=== PATIENT | male | born 1995 | race Caucasian/White ===

== ENCOUNTER 2016-08-07 01:25 | Emergency (ER) | payer OTHER | END 2016-08-07 02:50 | disposition home or self-care (01) | LOC: FER 01:25 | DX: S29.012A Strain of muscle and tendon of back wall of thorax, initial encounter (principal); F17.210 Nicotine dependence, cigarettes, uncomplicated; X50.9XXA Other and unspecified overexertion or strenuous movements or postures, initial encounter | CPT/HCPCS: 99283 ==

== ENCOUNTER 2021-02-16 14:49 | Emergency (ER) | payer OTHER ==
[~2021-02-16 14:49] MED LIST: SUDAFED30 MG PO; TAMIFLU 75MG CA75 MG PO; TESSALON PERLE100 M1 PO
[2021-02-16 16:45] LABS: INFLUENZA A NAA NEGATIVE (NEGATIVE)
[2021-02-16 17:11] LABS: CORONAVIRUS 2019 SARS-COV-2 POSITIVE (NEGATIVE)
== END 2021-02-16 17:45 | disposition home or self-care (01) ==
LOC: FER 14:49
PROVIDERS: Physician Assistant
DX: U07.1 COVID-19 (principal); F17.290 Nicotine dependence, other tobacco product, uncomplicated
CPT/HCPCS: 99283; U0002